=== PATIENT | female | born 1960 | race Hispanic/Latino ===

== ENCOUNTER 2023-12-23 12:36 | Emergency (ER) | payer BC, OTHER ==
[~2023-12-23] VITALS: Ht 160 cm; Wt 98.4 kg
[2023-12-23 12:54] VITALS: BP 146/90; PULSE 103; RESP 20; O2SAT 99
[2023-12-23 13:17] LABS: RAPID GROUP A STREP negative (NEGATIVE)
[2023-12-23 13:21] LABS: SARS-CoV-2, RNA, NAAT NEGATIVE SARS CoV-2 (NEGATIVE)
[2023-12-23 13:27] LABS: INFLUENZA TYPE A Negative For Type A (NEGATIVE)
[2023-12-23 13:44] LABS: INFLUENZA TYPE B Positive For Type B (NEGATIVE)
[2023-12-23] MEDS ORDERED: OSEL75 PO (14:18)
[2023-12-23] MEDS ORDERED: BENZ-39 PO (14:26)
== END 2023-12-23 14:46 | disposition home or self-care (01) ==
LOC: EDH 12:36
DX: J10.1 Influenza due to other identified influenza virus with other respiratory manifestations (principal); E78.00 Pure hypercholesterolemia, unspecified; Z88.0 Allergy status to penicillin; Z20.822 Contact with and (suspected) exposure to COVID-19
CPT/HCPCS: 87635; 87804; 87880